=== PATIENT | female | born 1965 | race African-American/Black ===

== ENCOUNTER 2016-11-26 02:09 | Emergency (ER) | payer MEDICAID ==
[~2016-11-26] VITALS: Ht 165.1 cm; Wt 93.0 kg
[2016-11-26 05:30] VITALS: BP 128/89
== END 2016-11-26 05:30 | disposition home or self-care (01) ==
LOC: ER 02:09
DX: R05 Cough (principal); Z87.891 Personal history of nicotine dependence
CPT/HCPCS: 71010; 99283